=== PATIENT | male | born 1985 | race Caucasian/White ===

== ENCOUNTER 2019-07-09 22:04 | Inpatient (IN) ==
[2019-07-09 22:22] LABS: BE -1.5 mmoll (-3.0-3.0); BLOOD TYPE ARTERIAL; HCO3-(ACT) 22.8 mmoll (20.0-26.0); METHB 0.9 % (0.0-1.5); O2(CT) 19.8 mL/dL (15.0-23.0); PCO2(98.6) 34 mmHg (35-45); PO2(98.6) 60 mmHg (60-100); SAMPLE BLOOD; SAO2 96.7 % (95.0-100.0); THB 19.3 g/dL (11.5-17.4); pH(98.6) 7.42 (7.35-7.45)
[2019-07-09 22:39] LABS: ALLEN TEST NO; MODALITY ROOM AIR
[2019-07-09 22:43] LABS: BASO# 0.12 X1000 (0.0-0.2); BASO% 0.9 % (0.0-0.8); EOS# 0.31 X1000 (0.0-0.7); EOS% 2.2 % (0.0-10.0); HEMATOCRIT 54.4 % (42.0-52.0); HEMOGLOBIN 18.5 g/dL (14.0-18.0); IMM GRAN# 0.03 X1000 (0.0-0.04); IMM GRAN% 0.2 % (0.0-0.5); LYMPH% 29.9 % (20.5-51.1); MONO# 1.14 X1000 (0.11-0.59); MONO% 8.1 % (1.7-9.3); MPV 10.5 FL (7.4-10.4); NEUT# 8.24 X1000 (1.4-6.5); NEUT% 58.7 % (42.2-75.2); PLT 235 X1000 (130-400); RBC 5.79 XMIL (4.7-6.1); RDW 13.6 % (11.5-14.5); WBC 14.04 X1000 (4.8-10.8)
[2019-07-09 22:52] LABS: AGAP 17; ALBUMIN 4.6 g/dL (3.5-5.0); ALKALINE PHOSPHATASE 89 U/L (32-122); BUN 8 mg/dL (8-22); CALCIUM 9.4 mg/dL (8.8-10.2); CHLORIDE 102 mmol/L (98-107); CK PROFILE 89 U/L (24-204); COSMO 278; CREATININE 1.1 mg/dL (0.7-1.2); ESTIMATED GFR > 60; GLUCOSE 174 mg/dL (70-104); GOT 17 U/L (10-34); GPT 14 U/L (10-44); POTASSIUM 4.1 mmol/L (3.5-5.1); SODIUM 138 mmol/L (136-145); TCO2 19 mmol/L (25-35); TOTAL PROTEIN 6.7 g/dL (6.3-8.3)
[2019-07-09] MEDS: NS 1,000 ML IV ONE (23:35)
[2019-07-10] MEDS ORDERED: ROCEPHIN 1 GM in NS 50 ML IV ONE (00:08)
[2019-07-10] MEDS ORDERED: NS 1,000 ML IV ONE (00:44)
[2019-07-10] MEDS ORDERED: HUMALOG (PARKWAY) SUBQ ONE (02:25)
[2019-07-10] MEDS: ZITHROMAX 500 MG/NS 500 MG/250 ML IVPB IV SCH (02:48)
[2019-07-10] MEDS: NS 1,000 ML IV ONE (02:48)
[2019-07-10] MEDS: DUONEB (A & A) INH SCH ×6 (03:43→23:05)
--- NOTE | 2019-07-10 04:04 | EKG Report ---
Test Performed on : 07/09/2019 10:44:14 PM Test Reason : pain Blood Pressure : / mmHG Vent. Rate : 081 BPM Atrial Rate : 081 BPM P-R Int : 140 ms QRS Dur : 096 ms QT Int : 370 ms P-R-T Axes : 072 080 068 degrees QTc Int : 429 ms Normal sinus rhythm. with sinus arrhythmia. Possible Left atrial enlargement Borderline ECG When compared with ECG of 08-JUL-2019 16:18, (Unconfirmed) No significant change was found Unconfirmed Result
[2019-07-10 06:02] LABS: BE 1.7 mmoll (-3.0-3.0); BLOOD TYPE ARTERIAL; HCO3-(ACT) 25.8 mmoll (20.0-26.0); METHB 1.4 % (0.0-1.5); O2(CT) 21.3 mL/dL (15.0-23.0); PCO2(98.6) 38 mmHg (35-45); PO2(98.6) 56 mmHg (60-100); SAMPLE BLOOD; THB 17.9 g/dL (11.5-17.4); pH(98.6) 7.44 (7.35-7.45)
[2019-07-10 06:07] LABS: ALLEN TEST NO; MODALITY ROOM AIR; O2HB 84.8 % (95.0-99.0)
[2019-07-10 06:10] LABS: BASO# 0.06 X1000 (0.0-0.2); BASO% 0.6 % (0.0-0.8); EOS# 0.28 X1000 (0.0-0.7); EOS% 2.6 % (0.0-10.0); HEMATOCRIT 50.5 % (42.0-52.0); HEMOGLOBIN 16.6 g/dL (14.0-18.0); IMM GRAN# 0.03 X1000 (0.0-0.04); IMM GRAN% 0.3 % (0.0-0.5); LYMPH# 2.58 X1000 (1.2-3.4); LYMPH% 23.8 % (20.5-51.1); MCHC 32.9 g/dL (33-37); MCV 94.4 FL (81-99); MONO# 0.74 X1000 (0.11-0.59); MONO% 6.8 % (1.7-9.3); MPV 10.1 FL (7.4-10.4); NEUT# 7.13 X1000 (1.4-6.5); NEUT% 65.9 % (42.2-75.2); PLT 195 X1000 (130-400); RBC 5.35 XMIL (4.7-6.1); RDW 13.4 % (11.5-14.5); WBC 10.82 X1000 (4.8-10.8)
[2019-07-10 06:25] LABS: AGAP 12; ALBUMIN 3.9 g/dL (3.5-5.0); ALKALINE PHOSPHATASE 78 U/L (32-122); BUN 6 mg/dL (8-22); CALCIUM 8.6 mg/dL (8.8-10.2); CHLORIDE 108 mmol/L (98-107); COSMO 285; ESTIMATED GFR > 60; GLUCOSE 107 mg/dL (70-104); GOT 13 U/L (10-34); GPT 12 U/L (10-44); POTASSIUM 3.7 mmol/L (3.5-5.1); SODIUM 144 mmol/L (136-145); TCO2 24 mmol/L (25-35); TOTAL PROTEIN 5.8 g/dL (6.3-8.3)
--- NOTE | 2019-07-10 07:22 | Diag Imaging Result Doc PS360 ---
EXAM: CHEST-PORTABLE - 07/09/2019 HISTORY: cough TECHNIQUE: Portable chest COMPARISON: 07/08/2019 FINDINGS: Heart size is normal. There are ill-defined basilar infiltrates which appear overall decreased compared to prior. There is no pleural effusion or pneumothorax identified. IMPRESSION: Ill-defined basilar infiltrates, which are overall decreased compared to prior. Electronically signed by WilbertoWooshiimeghan 07/10/2019 7:19 AM
--- NOTE | 2019-07-10 07:51 | Diag Imaging Result Doc PS360 ---
EXAM: CHEST-2 VIEWS - 07/10/2019 HISTORY: repeat, pna TECHNIQUE: Chest two views COMPARISON: 07/09/2019 portable chest FINDINGS: Heart size is normal. There are apparent COPD changes with mildly hyperexpanded lungs. There is infiltrate with atelectasis at the posterior inferior left lower lobe. There is otherwise mild prominence of bilateral basilar interstitial markings. There is a possible tiny left pleural effusion. There is no evidence of pneumothorax. IMPRESSION: Apparent COPD changes with mildly hyperexpanded lungs. Infiltrate with atelectasis at posterior inferior left lower lobe, suspicious for pneumonia. Mild prominence of basilar interstitial markings. Electronically signed by Wilberto Gunderson 07/10/2019 7:49 AM
[2019-07-10] MEDS ORDERED: NS 1,000 ML IV SCH (08:00)
[2019-07-10] MEDS ORDERED: NICODERM PATCH TD SCH (09:00)
[2019-07-10 09:56] LABS: HEMOGLOBIN A1C 5.2 % (4.8-6.0)
[2019-07-10] MEDS ORDERED: PNEUMOVAX 23 IM ONE (10:00)
[2019-07-10] MEDS ORDERED: FLU VACCINE IM ONE (10:00)
--- NOTE | 2019-07-10 14:13 | Diag Imaging Result Doc PS360 ---
EXAM: MRI BRAIN W/O CONTRAST - 07/10/2019 HISTORY: r/o cva TECHNIQUE: MRI brain without contrast COMPARISON: 07/08/2019 CT head FINDINGS: There is no evidence of intracranial hemorrhage, mass effect, midline shift, or hydrocephalus. There are no substantial signal abnormalities identified. The diffusion weighted images show no areas of restricted diffusion (no evidence of acute infarct). IMPRESSION: No visible intracranial abnormality. No evidence of infarct. Electronically signed by [employer] 07/10/2019 2:11 PM
[2019-07-11] MEDS: ZITHROMAX 500 MG/NS 500 MG/250 ML IVPB IV SCH (00:45)
[2019-07-11] MEDS ORDERED: ROCEPHIN 1 GM in NS 50 ML IV SCH (01:00)
[2019-07-11] MEDS: DUONEB (A & A) INH SCH ×2 (03:46→08:12)
--- NOTE | 2019-07-11 04:42 | HISTORY AND PHYSICAL ---
ADDENDUM: Patient seen and examined by myself. Full note dictated and discussed with nurse practitioner. Patient presented back to the hospital with pneumonia. He recently was here yesterday, left AMA. His carboxyhemoglobin is markedly elevated at 23. Repeat after being in the hospital for several hours is 6.4. We are going to admit him to the hospital, place him on antibiotics, breathing treatments, oxygen and we will follow. Discussed with patient the importance of stopping smoking. cc: Brayden Curtis MD
--- NOTE | 2019-07-11 05:56 | HISTORY AND PHYSICAL ---
PRIMARY CARE PHYSICIAN: None. CHIEF COMPLAINT: Weakness to the left side. HISTORY OF PRESENT ILLNESS: Mr. Menendez is a 34-year-old, male, who presents with past medical history of seizures, COPD, chronic pain, and tobacco dependency. Mr. Menendez presents to the ER with complaints of severe weakness, numbness, tingling to the whole left side of his body. The patient states that this started approximately 1 day ago. He actually did lose complete sensation to his left hand, and loss of function to his left hand. The patient denies any facial droop. The patient states he also had some slurred speech. He denies any difficulty swallowing or any confusion. The patient did come to our ER when his symptoms initially occurred, but did leave AGAINST MEDICAL ADVICE from the ER, but decided to come back because the symptoms did not resolve. The patient also states he has been fighting a cold for about a month. He states he has had a cough with a runny nose, with diarrhea, some nausea and vomiting. He has been taking Tylenol Severe Cold, and this has dried his nose up, and he has had some bleeding from his nose. The patient denies any fever, chills, headache, vision changes, neck pain, excessive thirst, palpitations, chest pain, orthopnea, PND, leg edema, melena, hematemesis, dysuria, frequency, hematuria, tremors, numbness, tingling. The patient states he did have a seizure last p.m. prior to coming to the ER, but he is known to have seizures and has a past medical history of seizures. The patient does deny any other pertinent symptoms at this time. REVIEW OF SYSTEMS: A 10-point review of systems has been obtained and all are negative, except for what is stated above in the HPI. PAST MEDICAL HISTORY: 1. Seizures. 2. COPD. 3. Chronic pain. 4. Tobacco dependency. PAST SURGICAL HISTORY: Hand surgery to the left hand as a child. FAMILY HISTORY: Mother significant for seizures. Father at the age of 62 from COPD. He also had heart failure and a pacemaker. SOCIAL HISTORY: The patient does live with his and his children. He works at [employer] in [place]. He smokes 4 packs of cigarettes per day and has for many years. He occasionally drinks alcohol. He denies any illicit drug use. ALLERGIES: Keflex. HOME MEDICATIONS: None. PHYSICAL EXAMINATION: VITAL SIGNS: Temperature 97.7 degrees, pulse rate 88, respiratory rate 20, blood pressure 118/60, O2 saturation 93% on room air. GENERAL: This is a 34-year-old, male. He is lying in the hospital bed. He is well nourished and well developed. He is in no acute distress on 2 L nasal cannula. HEENT: Atraumatic, normocephalic. Pupils equal, round, react to light. Mucous membranes are dry. NECK: Supple. No lymphadenopathy. Trachea midline. No JVD. CV: Regular rate and rhythm. No murmurs, gallops, or rubs appreciated. RESPIRATORY: Lung sounds are extremely diminished. The patient has a barrel chest. He is barely moving any air through his lung spaces. He is on 2 L nasal cannula. He does not appear to be labored, although I could not hear much air movement through his lungs. Respirations do appear to be nonlabored with no accessory muscle usage. GI: Abdomen is soft, nontender, nondistended. Bowel sounds are present x4. : No CVA tenderness noted. The patient is voiding without difficulty. NEUROLOGIC: The patient is awake, alert, oriented, and able to follow all my commands appropriately. MUSCULOSKELETAL: The patient does have significant decreased strength to the left hand and left arm and the left leg. EXTREMITIES: No clubbing, no cyanosis, no edema. DP and PT pulses are present and palpable. SKIN: Warm, dry, and intact. No rashes. No bruises. No diaphoresis. LABORATORY AND DIAGNOSTIC DATA: White blood cell count 14.04, hemoglobin 18.5, hematocrit 54.4, platelet count 235,000. PH 7.42, pCO2 of 34, PO2 of 60, bicarb 22.8, oxyhemoglobin 73, carboxyhemoglobin 23.6, O2 saturation 96.7, carboxyhemoglobin 23.6, lactate 4.1. Sodium 138, potassium 4.1, carbon dioxide 19, BUN 8, creatinine 1.1, glucose 174. Chest x-ray shows infiltrate with atelectasis at the posterior inferior left lower lobe, suspicious for pneumonia, with mild prominence of basilar interstitial markings and apparent COPD. Head CT is negative. ASSESSMENT: 1. Possible cerebrovascular accident. 2. Pneumonia. 3. Chronic obstructive pulmonary disease with acute exacerbation and hypoxemia. 4. Seizures. 5. Chronic pain. 6. Tobacco dependency. PLAN: We have admitted this patient to the medical floor. We are going to do an MRI of the brain. Blood cultures were obtained. We are going to place this patient on IV fluid hydration. We are going to do albuterol breathing treatments every 4 hours. He was started on IV antibiotics of Rocephin and azithromycin. He was given a dose of insulin in the ER. The patient does not report being diabetic. I will check an A1c level on the patient. A1c appears to be 5.2. The patient does not appear to be diabetic. We have provided the patient with supplemental O2. I have provided him with a nicotine patch and smoking cessation information for greater than 10 minutes. The patient does state that he does not want to stay in the hospital. I have encouraged the patient to stay in the hospital and receive IV antibiotics and treatment. We placed him on a monitoring engineer. We provided him with a healthy heart diet. All other further recommendations pending hospital course and laboratory data. Dictated by SHANIQUE Spivey for Brayden Curtis MD cc: pourer buggy ladleMD Brayden Curtis MD
--- NOTE | 2019-07-11 07:35 | Diag Imaging Result Doc PS360 ---
EXAM: CHEST-2 VIEWS - 07/11/2019 HISTORY: dyspnea TECHNIQUE: Chest two views COMPARISON: 07/10/2019 FINDINGS: Heart size is normal. There are COPD changes. There is infiltrate at the left lower lobe which appears to have increased mildly. There are no other substantial interval changes identified. There is no evidence of pneumothorax. IMPRESSION: COPD. Mild increase in left lower lobe infiltrate. Electronically signed by Wilberto Gunderson 07/11/2019 7:33 AM
[2019-07-11 08:18] VITALS: BP 139/89
--- NOTE | 2019-07-13 02:42 | DISCHARGE SUMMARY ---
ADMISSION DATE: 07/10/2019 DISCHARGE DATE: 07/11/2019 DISCHARGE DIAGNOSIS: 1. Left-sided numbness. 2. Pneumonia. 3. Chronic obstructive pulmonary disease with exacerbation. 4. Carboxyhemoglobinemia. 5. History of seizures. 6. Chronic pain. 7. Chronic tobacco use and abuse. CONSULTATIONS: None. PROCEDURES: None. BRIEF HOSPITAL COURSE: The patient is a 34-year-old male who presented to the hospital secondary to shortness of breath and left arm numbness. Thankfully, his left arm numbness resolved. He was noted to have a markedly elevated carboxyhemoglobin as well as pneumonia. He was placed on antibiotics, breathing treatments, oxygen and steroids. An MRI of his brain was negative and therefore he will be discharged home. DISPOSITION: Patient will be discharged home. He will continue antibiotics at home. Did discuss with him the importance of stopping smoking as well as any other illicit substances. TIME SPENT: Greater than 30 minutes was spent in total care. He will continue steroids, antibiotics at home. cc: Brayden Curtis MD
--- NOTE | 2019-07-19 10:52 | PROVIDER DOCUMENTATION ---
This chart was entered by Cecily Daly Scribe, acting as scribe for Howie Aguilar MD. HPI-General Adult <Yael RetanaVero - Last Filed: 07/10/19 00:48> - General Source: patient, family - History of Present Illness -Gen Adult Nature of Presenting Problems: pt is a 34 yr old male presenting with continued left arm numbness, shortness of breath and coughing. pt was seen here yesterday , admitted but left AMA Location of Pain/Injury: reports: upper extremity (left arm) Pain Radiation: reports: no radiation Timing: reports: still present Context/Activities at Onset: reports: light activity Modifying Factors: improves with: nothing Associated Symptoms: reports: cough, sensory/motor loss (left arm), weakness Similar Symptoms Previously?: Yes Recently seen or treated by another doctor?: Yes <Howie Aguilar - Last Filed: 07/20/19 14:15> - General Chief Complaint: Numbness Stated Complaint: NUMBNESS Time Seen by Provider: 07/09/19 22:05 Allergies/Adverse Reactions: Patient Allergies Allergy/AdvReac Type Severity Reaction Status Date / Time cephalexin monohydrate * Allergy ITCHING Verified 07/08/19 16:16 [From Keflex] Home Medications: Home Medication List Medication Instructions Recorded Confirmed Last Taken Type CefDINIR [Omnicef] 300 mg PO BID #14 cap 07/10/19 Unknown Rx Methylprednisolone [Medrol Dosepak] 4 mg PO DIRECTED #1 pkg 07/10/19 Unknown Rx Levofloxacin [Levaquin] 500 mg PO DAILY #7 tab 07/11/19 Unknown Rx Nicotine Patch [Nicoderm Patch] 21 mg TD DAILY #30 patch.[id number] 07/11/19 Unknown Rx Review of Systems - Adult - REVIEW OF SYSTEMS - ADULT Constitutional: reports: fatique. denies: chills, fever Eyes: reports: no symptoms reported Ears, Nose, Mouth & Throat: reports: no symptoms reported Cardiovascular: denies: chest pain, syncope Respiratory: reports: cough, shortness of breath Gastrointestinal: reports: no symptoms reported Genitourinary: reports: no symptoms reported Musculoskeletal: reports: muscle weakness (left arm) Integumentary: reports: no symptoms reported Neurological: reports: numbness (left arm) Psychiatric: reports: no symptoms reported Endocrine: reports: no symptoms reported Hematologic/Lymphatic: reports: no symptoms reported Allergic/Immunologic: reports: no symptoms reported All Other Systems: Reviewed and Negative <Howie Aguilar - Last Filed: 07/20/19 14:15> Past History - Adult - PAST MEDICAL HISTORY-ADULT Review of Records: reports: Old Records Reviewed, Nursing Assessment Review, Medications Reviewed, Social history reviewed & non-contributory. Major Childhood Illnesses: reports: denies history Cardiovascular: reports: denies history Respiratory: reports: bronchitis Gastrointestinal: reports: hemorrhoids Obstetrical/Gynecological: reports: denies history Genitourinary: reports: denies history Musculoskeletal: reports: chronic pain Neurological: reports: Seizures/Epilepsy Psychiatric: reports: denies history Endocrine/Immune: reports: denies history Other Conditions: reports: denies history - PRIOR SURGERIES/PROCEDURES Surgical/Procedure History: reports: orthopedic (extremity) - IMMUNIZATION STATUS Childhood Immunizations: See Nurse Assessment Flu Vaccine: See Nurse Assessment - FAMILY HISTORY Family History: reviewed, not pertinent - SOCIAL HISTORY Smoking: cigarettes, greater than 1 pack/day (5ppd) Substance Use: alcohol Living Situation: family <Howie Aguilar - Last Filed: 07/20/19 14:15> Physical Exam-General - PHYSICAL EXAM-ADULT Initial Vital Signs Reviewed: Yes - CONSTITUTIONAL General Appearance: alert, no apparent distress, anxious - EYES Eyes: PERRL/EOMI - HEAD, EARS, NOSE, MOUTH & THROAT HENMT: normocephalic/atraumatic, moist mucous membranes, normal ENT inspection - NECK Neck: non-tender, full range of motion, supple, normal inspection - RESPIRATORY Respiratory: chest non-tender, no pleuratic chest pain - CARDIOVASCULAR Cardiovascular: normal peripheral pulses, no edema, tachycardia - GASTROINTESTINAL (ABDOMEN) Abdominal Exam: normal bowel sounds, non tender, soft - LYMPHATIC Lymphatic: no adenopathy - MUSCULOSKELETAL Back Exam: normal inspection Extremity: normal range of motion, non-tender, normal inspection - SKIN Integumentary: normal color, normal turgor, warm/dry - PSYCHIATRIC Psych/Mental Status: anxious <Howie Aguilar - Last Filed: 07/20/19 14:15> Progress - PLAN OF CARE/RESULTS Progress/Plan/Lab Results: Vital Signs - 8 hr 07/09/19 22:13 07/09/19 22:37 07/10/19 00:15 Temperature 98.2 F 98.4 F Pulse Rate 120 H 73 74 Respiratory Rate 20 25 H 14 Blood Pressure 135/94 131/74 123/77 O2 Sat by Pulse Oximetry 91 L 94 L 95 Laboratory Results - last 24 hr 07/09/19 07/09/19 07/09/19 22:13 22:13 22:13 WBC 14.04 H RBC 5.79 Hgb 18.5 H Hct 54.4 H MCV 94.0 MCH 32.0 H MCHC 34.0 RDW Std Deviation 13.6 Plt Count 235 MPV 10.5 H Immature Gran % (Auto) 0.2 Neut % (Auto) 58.7 Lymph % (Auto) 29.9 [place] % (Auto) 8.1 Eos % (Auto) 2.2 Baso % (Auto) 0.9 H Immature Gran # (Auto) 0.03 Neut # (Auto) 8.24 H Lymph # (Auto) 4.20 H [place] # (Auto) 1.14 H Eos # (Auto) 0.31 Baso # (Auto) 0.12 Specimen Type Sample Site pH pCO2 pO2 HCO3 Base Excess Oxyhemoglobin ABG O2 Sat (Calculated) ABG O2 Saturation ABG Carboxyhemoglobin ABG Methemoglobin Pete Test A-a O2 Difference Total Hemoglobin Lactate Blood Gas Modality FiO2 % Sodium 138 Potassium 4.1 Chloride 102 Carbon Dioxide 19 L Anion Gap 17 BUN 8 Creatinine 1.1 Estimated GFR/1.73 m2 > 60 BUN/Creatinine Ratio 7 Glucose 174 H POC Glucose Calculated Osmolality 278 Calcium 9.4 Total Bilirubin 0.40 AST 17 ALT 14 Alkaline Phosphatase 89 Creatine Kinase 89 Troponin T High Sens < 6 Total Protein 6.7 Albumin 4.6 Globulin 2.0 Albumin/Globulin Ratio 2.0 Plasma Lactate 07/09/19 07/09/19 07/09/19 22:15 22:15 23:04 WBC RBC Hgb Hct MCV MCH MCHC RDW Std Deviation Plt Count MPV Immature Gran % (Auto) Neut % (Auto) Lymph % (Auto) [place] % (Auto) Eos % (Auto) Baso % (Auto) Immature Gran # (Auto) Neut # (Auto) Lymph # (Auto) [place] # (Auto) Eos # (Auto) Baso # (Auto) Specimen Type ARTERIAL Sample Site R BRACHIAL pH 7.42 pCO2 34 L pO2 60 HCO3 22.8 Base Excess -1.5 Oxyhemoglobin 73.0 L* ABG O2 Sat (Calculated) 19.8 ABG O2 Saturation 96.7 ABG Carboxyhemoglobin 23.60 H* ABG Methemoglobin 0.9 Pete Test NO A-a O2 Difference 47.0 Total Hemoglobin 19.3 H Lactate 4.10 H* Blood Gas Modality ROOM AIR FiO2 % 21.0 Sodium Potassium Chloride Carbon Dioxide Anion Gap BUN Creatinine Estimated GFR/1.73 m2 BUN/Creatinine Ratio Glucose POC Glucose 146 H Calculated Osmolality Calcium Total Bilirubin AST ALT Alkaline Phosphatase Creatine Kinase Troponin T High Sens Total Protein Albumin Globulin Albumin/Globulin Ratio Plasma Lactate 1.5 Orders Category Date Time Status Admit - [facility] Routine AdmDCTranf 07/10/19 00:44 Active Neurological Check Q4H Care 07/10/19 00:45 Active Vital Signs Order ROUTINE Care 07/10/19 00:44 Active Z-Document. for Tele Applied ORDERED Care 07/10/19 00:46 Active Heart Healthy Diet Diet 07/10/19 00:46 Active CHEST-PORTABLE [RAD] Stat Exams 07/09/19 22:26 Taken ABG [RESP] Routine Lab 07/09/19 22:15 Completed BLOOD CULTURE [BLDCUL] Stat Lab 07/09/19 23:01 Ordered CBC WITH DIFF [HEME] Stat Lab 07/09/19 22:13 Completed CK PROFILE [SP CHEM] Stat Lab 07/09/19 22:13 Completed COMPREHENSIVE METABOLIC PANEL [CHEM] Stat Lab 07/09/19 22:13 Completed LACTATE, PLASMA [CHEM] Stat Lab 07/09/19 23:04 Completed TROPONIN T HIGH SENSITIVITY Stat Lab 07/09/19 22:13 Completed 0.9% Sodium Chloride Inj [Ns] 1,000 ml Med 07/09/19 23:17 Active IV 125 mls/hr 0.9% Sodium Chloride Inj [Ns] 1,000 ml Med 07/10/19 00:44 Active IV 75 mls/hr Albuterol 2.5MG/Ipratrop 0.5MG [Duoneb (A & A)] Med 07/10/19 03:30 Ordered 3 ml INH RTQ4H CefTRIAXONE [Rocephin] 1 gm Med 07/10/19 00:08 Discontinued 0.9% Sodium Chloride Inj [Ns] 50 ml IV NOW Aerosol Treatments Routine Oth 07/10/19 00:46 Active Aerosol Treatments Stat Oth 07/10/19 00:46 Active Oxygen Device Routine Oth 07/10/19 00:46 Active Telemetry [OM.EQ] Routine Oth 07/10/19 00:44 Active EKG [EKG] Stat Ther 07/09/19 22:23 Ordered Transfer/Admit Order [TRANSFER] Routine Transfer 07/10/19 00:46 Ordered 0048: orders placed for admission per dr aguilar Result Diagrams: 07/09/19 22:13 07/09/19 22:13 <Yael Retana - Last Filed: 07/10/19 00:48> - PLAN OF CARE/RESULTS Progress/Plan/Lab Results: Vital Signs - 8 hr 07/09/19 22:13 Temperature 98.2 F Pulse Rate 120 H Respiratory Rate 20 Blood Pressure 135/94 O2 Sat by Pulse Oximetry 91 L Laboratory Results - last 24 hr 07/09/19 22:15 POC Glucose 146 H Orders Category Date Time Status CHEST-2 VIEWS [RAD] Stat Exams 07/09/19 22:26 Ordered ABG [RESP] Routine Lab 07/09/19 22:18 Ordered CBC WITH DIFF [HEME] Stat Lab 07/09/19 22:13 Results CK PROFILE [SP CHEM] Stat Lab 07/09/19 22:13 Received COMPREHENSIVE METABOLIC PANEL [CHEM] Stat Lab 07/09/19 22:13 Received TROPONIN T HIGH SENSITIVITY Stat Lab 07/09/19 22:13 Received EKG [EKG] Stat Ther 07/09/19 22:23 Ordered Result Diagrams: 07/10/19 05:50 07/10/19 05:50 - EKG 1 Time of EKG reading by physician:: 22:44 EKG Read and Signed by:: Howie Aguilar EKG Interpretation (*Must complete 3 of following elements*): Abnormal (poss LAE) Rate: 81 Rhythm: nsr with SA [place]: normal QRS: normal - XRAY 1 XRAY Study: Chest Impression: See EMR Report ([facility] - [address], [address], [place] [address] [facility] - [address] [place] [address] Department of Imaging Patient: PRATIMA TRAYLOR RAY JrADM Date: 07/10/19MR#: [id number] : 1985ADM Status: ADM INAcct#: [id number] Age/Sex: 34/MRoom/Bed: P.279-ALoc: LANI Ordering Physician: Howie Aguilar MD Family Physician: None,PCP Reason for Procedure: cough ___ Signed EXAM: CHEST-PORTABLE - 07/09/2019 HISTORY: cough TECHNIQUE: Portable chest COMPARISON: 07/08/2019 FINDINGS: Heart size is normal. There are ill-defined basilar infiltrates which appear overall decreased compared to prior. There is no pleural effusion or pneumothorax identified. IMPRESSION: Ill-defined basilar infiltrates, which are overall decreased compared to prior. Electronically signed by Wilberto Gunderson 07/10/2019 7:19 AM 07/10/19718 Interpreting Physician: Wilberto Gunderson MD Dictated Date/Time: 07/10/19717 cc: Howie Aguilar MD; None,PCP) 2 XRAY Study: Chest Impression: See EMR Report ([facility] - [address] [place] [address] [place] [id number] [facility] - [address] [place] [address] Department of Imaging Patient: PRATIMA TRAYLOR JrADM Date: 07/10/19MR#: [id number] : 1985ADM Status: ADM INAcct#: [id number] Age/Sex: 34/MRoom/Bed: P.279-ALoc: LANI Ordering Physician: Yael Retana Family Physician: None,PCP Reason for Procedure: repeat, pna Signed EXAM: CHEST-2 VIEWS - 07/10/2019 HISTORY: repeat, pna TECHNIQUE: Chest two views COMPARISON: 07/09/2019 portable chest FINDINGS: Heart size is normal. There are apparent COPD changes with mildly hyperexpanded lungs. There is infiltrate with atelectasis at the posterior inferior left lower lobe. There is otherwise mild prominence of bilateral basilar interstitial markings. There is a possible tiny left pleural effusion. There is no evidence of pneumothorax. IMPRESSION: Apparent COPD changes with mildly hyperexpanded lungs. Infiltrate with atelectasis at posterior inferior left lower lobe, suspicious for pneumonia. Mild prominence of basilar interstitial markings. Electronically signed by Wilberto Gunderson 07/10/2019 7:49 AM 07/10/19 0749 Interpreting Physician: Wilberto Gunderson MD Dictated Date/Time: 07/10/19 0745 cc: Yael Retana; None,PCP) <Howie Aguilar - Last Filed: 07/20/19 14:15> Departure <Yael Retana - Last Filed: 07/10/19 00:48> - Departure Date of Disposition Decision: 07/10/19 Time of Disposition Decision: 02:20 Certified Medical Emergency: Emergent - Critical Care Note This patient required my direct & personal management of CC.: No <Howie Aguilar - Last Filed: 07/20/19 14:15> - Departure DIAGNOSIS: Left arm numbness, Pneumonia Disposition: ADMITTED INPATIENT 09 Condition: Stable Attestation - Physician/ LLUVIA Attestation The physician spent face to face time with patient:: Yes Advanced Practice Provider documentation review:: Supervising physician onsite and consulted in the evaluation and care of this patient. The physician did have a face to face encounter with the patient. <Howie Aguilar - Last Filed: 07/20/19 14:15> This chart was documented by the indicated scribe, (Cecily Daly, Macey) and accurately reflects the services I performed and decisions made by me, Howie Aguilar MD, as attested by the provider's signature.
== END 2019-07-11 09:04 | disposition home or self-care (01) | DRG 194 ==
LOC: P.ED 22:04 → P.MEDSURG 07-10 02:10
PROVIDERS: ATTEND Family Medicine